=== PATIENT | female | born 1935 | race Caucasian/White ===

== ENCOUNTER 2017-07-21 14:17 | Emergency (ER) | payer MEDICARE, BC ==
--- NOTE | 2017-07-21 14:52 | RAD ---
2 VIEWS CHEST: Date: 07/21/17 COMPARISON: 07/25/13. FINDINGS: Two views of the chest show normal sized cardiomediastinal silhouette with atherosclerotic calcificat ions in the aorta. There is no evidence of consolidation, mass, or pleural effusion. Degenerative joselyn nges are seen in the spine. IMPRESSION: No evidence of acute cardiopulmonary disease. POS: [id number]
== END 2017-07-21 15:01 | disposition home or self-care (01) ==
LOC: SCSER 14:17
DX: J11.1 Influenza due to unidentified influenza virus with other respiratory manifestations (principal); J45.909 Unspecified asthma, uncomplicated
CPT/HCPCS: 71046

== ENCOUNTER 2018-01-26 16:47 | Emergency (ER) | payer MEDICARE, BC | END 2018-01-26 18:08 | disposition home or self-care (01) | LOC: SCSER 16:47 | DX: L29.9 Pruritus, unspecified (principal) | CPT/HCPCS: 99282 ==

== ENCOUNTER 2022-04-15 04:10 | Emergency (ER) | payer OTHER ==
[2022-04-15] MEDS ORDERED: Proparacaine 0.5% Opth 15 ML BOT ONE (04:33)
[2022-04-15] MEDS ORDERED: Fluorescein Opthalmic Strip ONE (04:33)
== END 2022-04-15 05:03 | disposition home or self-care (01) ==
LOC: ERS 04:10
DX: S05.01XA Injury of conjunctiva and corneal abrasion without foreign body, right eye, initial encounter (principal); X58.XXXA Exposure to other specified factors, initial encounter
CPT/HCPCS: 99283

== ENCOUNTER 2023-02-15 12:51 | Outpatient (CLI) | payer OTHER | END 2023-02-15 12:52 | disposition home or self-care (01) | LOC: MRI 12:51 | PROVIDERS: ATTEND Family Medicine | DX: F02.B11 Dementia in other diseases classified elsewhere, moderate, with agitation (principal); I77.9 Disorder of arteries and arterioles, unspecified | CPT/HCPCS: 70551 ==

== ENCOUNTER 2023-02-23 14:49 | Emergency (ER) | payer OTHER ==
[2023-02-23] MEDS ORDERED: Fluorescein Opthalmic Strip ONE (15:00)
[2023-02-23] MEDS ORDERED: Proparacaine 0.5% Opth 15 ML BOT ONE (15:00)
== END 2023-02-23 15:24 | disposition home or self-care (01) ==
LOC: ERS 14:49
DX: Z77.098 Contact with and (suspected) exposure to other hazardous, chiefly nonmedicinal, chemicals (principal)
CPT/HCPCS: 99283

== ENCOUNTER 2023-02-25 19:34 | Emergency (ER) | payer OTHER ==
[2023-02-25] MEDS ORDERED: Boostrix 0.5 ML (Tdap) VIAL (>/=7 yrs of age) ONE (20:46)
== END 2023-02-25 21:14 | disposition home or self-care (01) ==
LOC: ERS 19:34
DX: S51.812A Laceration without foreign body of left forearm, initial encounter (principal); W26.8XXA Contact with other sharp object(s), not elsewhere classified, initial encounter
CPT/HCPCS: 90471; 90715; 99282

== ENCOUNTER 2023-03-01 09:19 | Inpatient (IN) | payer OTHER ==
[2023-03-01] MEDS ORDERED: Iopamidol-370 76% 500 ML MDV (1 ML CHARGE) ONE (09:52)
[2023-03-01 10:07] LABS: #Eosinphils 0.1 thou/uL (0.0-0.7); #Monocytes 0.4 thou/uL (0.11-0.59); #Neutrophils 3.2 thou/uL (1.40-6.50); %Basophils 0.7 % (0.0-1.0); %Eosinophils 1.8 % (0.0-10.0); %Lymphocytes 16.8 % (21.0-51.0); %Monocytes 9.2 % (0.0-10.0); %Neutrophils 71.1 % (42.0-75.0); Hematocrit 35.3 % (36.0-47.0); Hemoglobin 11.4 g/dL (12.0-16.0); Mean Corpuscular HGB CONC 32.3 g/dL (32.0-36.0); Mean Corpuscular Hemoglobin 29.7 pg (27.0-31.0); Mean Corpuscular Volume 91.9 fl (78.0-98.0); Mean Platelet Volume 10.7 fL (7.4-10.4); Platelet Count 216 10x3/uL (130-400); RBC Distribution Width 13.3 % (11.5-14.5); Red Blood Cell (RBC) Count 3.84 mill/uL (4.20-5.40); White Blood Cell (WBC) Count 4.5 10x3/uL (4.8-10.8)
[2023-03-01 10:32] LABS: Troponin I 0.024 ng/mL (< 0.028)
[2023-03-01 10:36] LABS: ALT (SGPT) 8 U/L (8-55); AST (SGOT) 10 U/L (5-34); Albumin 3.9 g/dL (3.4-4.8); Alkaline Phosphatase 54 U/L (40-110); Anion Gap 11 mmol/L (10-20); BUN (Urea Nitrogen) 11 mg/dL (9.8-20.1); Bilirubin, Total 0.7 mg/dL (0.2-1.2); Calc. Creatinine Clearance 0 mL/min (70-130); Calcium 8.8 mg/dL (7.8-10.44); Carbon Dioxide 25 mmol/L (23-31); Chloride 108 mmol/L (98-107); Estimated GFR 42; Globulin 2.6 g/dL (2.4-3.5); Glucose 99 mg/dL (83-110); Lipase 12 U/L (8-78); Magnesium 2.2 mg/dL (1.6-2.6); Potassium 3.5 mmol/L (3.5-5.1); Protein, Total 6.5 g/dL (5.8-8.1); Sodium 140 mmol/L (136-145)
[2023-03-01 11:16] LABS: Bacteria/HPF None Seen HPF (None Seen); Bilirubin Negative (Negative); Blood, Urine Negative (Negative); CAUTI Indications for Culture Dysuria,urgency,freq; Clarity Clear (Clear); Glucose, Urine (Dipstick) Normal (Negative); Ketone, Urine Negative (Negative); Leukocyte 75 Leu/uL (Negative); Nitrite Negative (Negative); Protein, Urine (Dipstick) Negative (Neg-Trace); RBC/HPF 0-3 HPF (0-3); Specific Gravity, Urine 1.006 (1.002-1.036); Squamous Epithelial 0-3 HPF (0-3); Urobilinogen Normal mg/dL (Less than 2); WBC/HPF 0-3 HPF (0-3)
[2023-03-01 11:17] LABS: Urine Culture Reflex No No
[2023-03-01] MEDS ORDERED: diphenhydrAMINE 50 MG/ML VIAL ONE (11:38)
[2023-03-01] MEDS ORDERED: Famotidine/PF 20 mg/2ml Vial ONE (11:40)
[2023-03-01] MEDS ORDERED: methylPREDNISolone Sod Succ 40 MG VIAL ONE (11:40)
[2023-03-01] MEDS ORDERED: Ondansetron ODT 4 MG TAB PO PRN (17:27)
[2023-03-01] MEDS ORDERED: Acetaminophen 325 MG TAB PO PRN (17:27)
[2023-03-01] MEDS ORDERED: Acetaminophen 650 MG Suppository PR PRN (17:27)
[2023-03-01] MEDS ORDERED: Ondansetron PF 4 MG/2 ML Vial IVP PRN (17:27)
[2023-03-01] MEDS ORDERED: Senokot S 8.6-50 MG TAB PO PRN (17:27)
[2023-03-01] MEDS ORDERED: traZODone HCl 50 MG TAB PO PRN (17:30)
[2023-03-01] MEDS ORDERED: Haloperidol Lactate 5 MG/ML VIAL ONE (18:39)
[2023-03-01] MEDS ORDERED: LORazepam 2 MG/ML SYR.(CARPUJECT) ONE (18:39)
[2023-03-01 19:22] VITALS: BMI 28.3
[2023-03-01 22:27] LABS: Anion Gap 18 mmol/L (10-20); BUN (Urea Nitrogen) 10 mg/dL (9.8-20.1); Calc. Creatinine Clearance 45 mL/min (70-130); Calcium 8.6 mg/dL (7.8-10.44); Carbon Dioxide 16 mmol/L (23-31); Chloride 110 mmol/L (98-107); Estimated GFR 56; Glucose 116 mg/dL (83-110); Potassium 3.9 mmol/L (3.5-5.1); Sodium 140 mmol/L (136-145)
[2023-03-02 05:48] LABS: #Eosinphils 0.1 thou/uL (0.0-0.7); #Monocytes 0.8 thou/uL (0.11-0.59); #Neutrophils 3.6 thou/uL (1.40-6.50); %Basophils 0.5 % (0.0-1.0); %Eosinophils 1.4 % (0.0-10.0); %Lymphocytes 19.9 % (21.0-51.0); %Monocytes 13.5 % (0.0-10.0); %Neutrophils 64.3 % (42.0-75.0); Hematocrit 33.5 % (36.0-47.0); Hemoglobin 10.4 g/dL (12.0-16.0); Mean Corpuscular Hemoglobin 29.5 pg (27.0-31.0); Mean Platelet Volume 10.3 fL (7.4-10.4); Platelet Count 190 10x3/uL (130-400); RBC Distribution Width 13.3 % (11.5-14.5); Red Blood Cell (RBC) Count 3.52 mill/uL (4.20-5.40); White Blood Cell (WBC) Count 5.5 10x3/uL (4.8-10.8)
[2023-03-02 05:54] LABS: Mean Corpuscular Volume 95.2 fl (78.0-98.0)
[2023-03-02 06:10] LABS: Anion Gap 11 mmol/L (10-20); BUN (Urea Nitrogen) 10 mg/dL (9.8-20.1); Calc. Creatinine Clearance 44 mL/min (70-130); Calcium 8.6 mg/dL (7.8-10.44); Carbon Dioxide 23 mmol/L (23-31); Chloride 110 mmol/L (98-107); Estimated GFR 54; Glucose 88 mg/dL (83-110); Potassium 3.4 mmol/L (3.5-5.1); Sodium 141 mmol/L (136-145)
[2023-03-02] MEDS: ALPRAZolam 0.25 MG TAB PO PRN ×2 (15:59→20:42)
[2023-03-02] MEDS ORDERED: Potassium Chloride 20 MEQ TAB PO SCH (16:45)
[2023-03-02] MEDS: Venlafaxine HCl 37.5 MG TAB PO SCH (20:42)
[2023-03-03] MEDS: Venlafaxine HCl 37.5 MG TAB PO SCH (07:52)
[2023-03-03 14:36] VITALS: BP 153/83; TEMP 98.1
== END 2023-03-03 16:21 | disposition home or self-care (01) | DRG 694 ==
LOC: ERS 09:19 → ERHOLD 15:58 → T4-B 18:58 → OBSVTOIN 03-02 14:28
PROVIDERS: ADMIT Internal Medicine; ATTEND Family Medicine
PROC: 0T9B70Z Drainage of Bladder with Drainage Device, Via Natural or Artificial Opening (ICD-10-PCS; principal; 2023-03-02)
DX: N13.30 Unspecified hydronephrosis (principal); F03.918 Unspecified dementia, unspecified severity, with other behavioral disturbance; J45.909 Unspecified asthma, uncomplicated; N17.9 Acute kidney failure, unspecified; E03.9 Hypothyroidism, unspecified; F41.9 Anxiety disorder, unspecified; Z96.653 Presence of artificial knee joint, bilateral; R33.9 Retention of urine, unspecified; E87.6 Hypokalemia; N18.9 Chronic kidney disease, unspecified; Z91.012 Allergy to eggs; Z91.013 Allergy to seafood; Z91.041 Radiographic dye allergy status; Z88.8 Allergy status to other drugs, medicaments and biological substances; Z88.2 Allergy status to sulfonamides; Z79.51 Long term (current) use of inhaled steroids; Z79.899 Other long term (current) drug therapy; Z90.710 Acquired absence of both cervix and uterus
CPT/HCPCS: 36415; 71045; 71275; 74177; 80048; 80053; 81001; 83690; 83735; 83880; 84484; 85025; 85379; 93005; J1200; J1630; J1650; J2060; J2920; Q9967; S0028

== ENCOUNTER 2023-03-03 19:39 | Emergency (ER) | payer OTHER ==
[2023-03-03] MEDS ORDERED: QUEtiapine 25 MG TAB PO SCH (22:15)
== END 2023-03-04 01:37 | disposition home or self-care (01) ==
LOC: ERS 19:39
DX: F03.90 Unspecified dementia, unspecified severity, without behavioral disturbance, psychotic disturbance, mood disturbance, and anxiety (principal)

== ENCOUNTER 2023-03-05 15:22 | Emergency (ER) | payer OTHER | END 2023-03-05 16:13 | disposition home or self-care (01) | LOC: ERS 15:22 | DX: K64.5 Perianal venous thrombosis (principal) | CPT/HCPCS: 99284 ==

== ENCOUNTER 2023-03-05 20:43 | Emergency (ER) | payer OTHER | END 2023-03-05 21:11 | disposition home or self-care (01) | LOC: ERS 20:43 | DX: T83.091A Other mechanical complication of indwelling urethral catheter, initial encounter (principal) | CPT/HCPCS: 99283 ==

== ENCOUNTER 2023-03-06 03:42 | Emergency (ER) | payer OTHER | END 2023-03-06 04:17 | disposition home or self-care (01) | LOC: ERS 03:42 | DX: S51.811A Laceration without foreign body of right forearm, initial encounter (principal); T83.028A Displacement of other urinary catheter, initial encounter | CPT/HCPCS: 99283 ==

== ENCOUNTER 2023-03-06 15:48 | Emergency (ER) | payer OTHER ==
[2023-03-06 18:46] LABS: Bilirubin Negative (Negative); Blood, Urine 3+ (Negative); CAUTI Indications for Culture Alt mental st,lethar; Clarity Clear (Clear); Glucose, Urine (Dipstick) Normal (Negative); Ketone, Urine Negative (Negative); Leukocyte 250 Leu/uL (Negative); Nitrite Negative (Negative); Protein, Urine (Dipstick) 30 mg/dL (Neg-Trace); RBC/HPF Greater than 50 HPF (0-3); Specific Gravity, Urine 1.004 (1.002-1.036); Squamous Epithelial 0-3 HPF (0-3); Urobilinogen Normal mg/dL (Less than 2); pH, Urine 6.5 (5.0-9.0)
[2023-03-06 18:47] LABS: Bacteria/HPF 1+ HPF (None Seen)
[2023-03-06 18:50] LABS: Urine Culture Reflex No No
== END 2023-03-06 18:57 | disposition home or self-care (01) ==
LOC: ERS 15:48
DX: T83.098A Other mechanical complication of other urinary catheter, initial encounter (principal)
CPT/HCPCS: 81001; 99283

== ENCOUNTER 2023-03-07 22:51 | Inpatient (IN) | payer OTHER ==
[2023-03-08] MEDS ORDERED: Ziprasidone 20 MG VIAL ONE (02:07)
[2023-03-08] MEDS ORDERED: Sterile Water 10 ML ONE (02:09)
[2023-03-08 02:22] LABS: #Eosinphils 0.1 thou/uL (0.0-0.7); #Monocytes 1.2 thou/uL (0.11-0.59); #Neutrophils 6.2 thou/uL (1.40-6.50); %Basophils 0.3 % (0.0-1.0); %Eosinophils 0.9 % (0.0-10.0); %Lymphocytes 13.9 % (21.0-51.0); %Monocytes 13.3 % (0.0-10.0); %Neutrophils 71.3 % (42.0-75.0); Hematocrit 33.5 % (36.0-47.0); Mean Corpuscular HGB CONC 32.8 g/dL (32.0-36.0); Mean Corpuscular Hemoglobin 29.8 pg (27.0-31.0); Mean Corpuscular Volume 90.8 fl (78.0-98.0); Mean Platelet Volume 10.3 fL (7.4-10.4); Platelet Count 209 10x3/uL (130-400); RBC Distribution Width 13.3 % (11.5-14.5); Red Blood Cell (RBC) Count 3.69 mill/uL (4.20-5.40); White Blood Cell (WBC) Count 8.6 10x3/uL (4.8-10.8)
[2023-03-08 02:48] LABS: Troponin I 0.019 ng/mL (< 0.028)
[2023-03-08 02:51] LABS: Bacteria/HPF 3+ HPF (None Seen); Bilirubin Negative (Negative); Blood, Urine 3+ (Negative); CAUTI Indications for Culture Alt mental st,lethar; Clarity Extra Turbid (Clear); Glucose, Urine (Dipstick) Normal (Negative); Ketone, Urine Negative (Negative); Leukocyte 500 Leu/uL (Negative); Nitrite 1+ (Negative); Protein, Urine (Dipstick) 100 mg/dL (Neg-Trace); RBC/HPF 21-50 HPF (0-3); Specific Gravity, Urine 1.005 (1.002-1.036); Squamous Epithelial None Seen HPF (0-3); Transitional Epithelial 0-3 HPF (None Seen); Urobilinogen Normal mg/dL (Less than 2); WBC/HPF Greater than 50 HPF (0-3); pH, Urine 6.5 (5.0-9.0)
[2023-03-08 02:53] LABS: ALT (SGPT) 9 U/L (8-55); AST (SGOT) 12 U/L (5-34); Albumin 3.9 g/dL (3.4-4.8); Alkaline Phosphatase 56 U/L (40-110); Anion Gap 14 mmol/L (10-20); BUN (Urea Nitrogen) 20 mg/dL (9.8-20.1); Bilirubin, Total 1.4 mg/dL (0.2-1.2); Calc. Creatinine Clearance 0 mL/min (70-130); Calcium 9.1 mg/dL (7.8-10.44); Carbon Dioxide 21 mmol/L (23-31); Chloride 103 mmol/L (98-107); Estimated GFR 30; Globulin 2.6 g/dL (2.4-3.5); Glucose 99 mg/dL (83-110); Protein, Total 6.5 g/dL (5.8-8.1); Sodium 134 mmol/L (136-145)
[2023-03-08 02:55] LABS: Urine Culture Reflex Yes Yes
[2023-03-08] MEDS ORDERED: LORazepam 2 MG/ML SYR.(CARPUJECT) ONE (03:52)
[2023-03-08] MEDS ORDERED: Doxycycline 100 MG in Sodium Chloride 0.9% 100 ML IVPB SCH (04:30)
[2023-03-08 08:11] LABS: Phosphorus 3.2 mg/dL (2.3-4.7)
[2023-03-08 08:25] LABS: INR-International Normal Ratio 1.3; PTT 31.3 sec (22.9-36.1); Prothrombin Time 16.8 sec (12.0-14.7)
[2023-03-08] MEDS ORDERED: LevoFLOXacin 750 mg/D5W 750 MG in Premix Bag 1 BAG IVPB SCH (09:00)
[2023-03-08] MEDS: Lactated Ringer's 1,000 ML IV SCH ×2 (09:23→23:39)
[2023-03-08 19:55] VITALS: BMI 24.9
[2023-03-08] MEDS: traZODone HCl 50 MG TAB PO PRN (20:22)
[2023-03-08] MEDS: QUEtiapine 25 MG TAB PO SCH (20:22)
[2023-03-09] MEDS ORDERED: Albuterol 200 PUFF (6.7GM INHALER) INH PRN (08:34)
[2023-03-09] MEDS: Lactated Ringer's 1,000 ML IV SCH (08:39)
[2023-03-09] MEDS: Venlafaxine XR 37.5 MG CAP PO SCH (08:39)
[2023-03-09 09:31] LABS: #Eosinphils 0.2 thou/uL (0.0-0.7); #Monocytes 0.6 thou/uL (0.11-0.59); #Neutrophils 2.9 thou/uL (1.40-6.50); %Basophils 0.4 % (0.0-1.0); %Eosinophils 3.6 % (0.0-10.0); %Lymphocytes 25.3 % (21.0-51.0); %Monocytes 11.1 % (0.0-10.0); %Neutrophils 59.4 % (42.0-75.0); Hematocrit 30.7 % (36.0-47.0); Hemoglobin 9.9 g/dL (12.0-16.0); Mean Corpuscular HGB CONC 32.2 g/dL (32.0-36.0); Mean Corpuscular Hemoglobin 29.8 pg (27.0-31.0); Mean Corpuscular Volume 92.5 fl (78.0-98.0); Mean Platelet Volume 10.5 fL (7.4-10.4); Platelet Count 157 10x3/uL (130-400); RBC Distribution Width 13.4 % (11.5-14.5); Red Blood Cell (RBC) Count 3.32 mill/uL (4.20-5.40); White Blood Cell (WBC) Count 4.9 10x3/uL (4.8-10.8)
[2023-03-09 09:51] LABS: Anion Gap 11 mmol/L (10-20); BUN (Urea Nitrogen) 13 mg/dL (9.8-20.1); Calc. Creatinine Clearance 29 mL/min (70-130); Calcium 8.7 mg/dL (7.8-10.44); Carbon Dioxide 23 mmol/L (23-31); Chloride 110 mmol/L (98-107); Estimated GFR 36; Glucose 82 mg/dL (83-110); Sodium 140 mmol/L (136-145)
[2023-03-09] MEDS: ALPRAZolam 0.25 MG TAB PO PRN (19:07)
[2023-03-09] MEDS: traZODone HCl 50 MG TAB PO PRN (19:41)
[2023-03-09] MEDS: QUEtiapine 25 MG TAB PO SCH (19:41)
[2023-03-10 06:58] LABS: #Eosinphils 0.2 thou/uL (0.0-0.7); #Monocytes 0.5 thou/uL (0.11-0.59); #Neutrophils 1.6 thou/uL (1.40-6.50); %Basophils 0.8 % (0.0-1.0); %Eosinophils 5.6 % (0.0-10.0); %Monocytes 13.2 % (0.0-10.0); %Neutrophils 44.1 % (42.0-75.0); Hematocrit 30.4 % (36.0-47.0); Hemoglobin 9.4 g/dL (12.0-16.0); Mean Corpuscular HGB CONC 30.9 g/dL (32.0-36.0); Mean Corpuscular Hemoglobin 29.5 pg (27.0-31.0); Mean Platelet Volume 10.5 fL (7.4-10.4); Platelet Count 180 10x3/uL (130-400); RBC Distribution Width 13.3 % (11.5-14.5); Red Blood Cell (RBC) Count 3.19 mill/uL (4.20-5.40); White Blood Cell (WBC) Count 3.7 10x3/uL (4.8-10.8)
[2023-03-10 07:03] LABS: Mean Corpuscular Volume 95.3 fl (78.0-98.0)
[2023-03-10 07:27] LABS: Anion Gap 10 mmol/L (10-20); BUN (Urea Nitrogen) 13 mg/dL (9.8-20.1); Calc. Creatinine Clearance 34 mL/min (70-130); Calcium 8.5 mg/dL (7.8-10.44); Carbon Dioxide 23 mmol/L (23-31); Chloride 111 mmol/L (98-107); Estimated GFR 43; Glucose 76 mg/dL (83-110); Potassium 3.9 mmol/L (3.5-5.1); Sodium 140 mmol/L (136-145)
[2023-03-10] MEDS: Venlafaxine XR 37.5 MG CAP PO SCH (08:34)
[2023-03-10] MEDS ORDERED: LevoFLOXacin 750 mg/D5W 750 MG in Premix Bag 1 BAG IVPB SCH (09:00)
[2023-03-10] MEDS: ALPRAZolam 0.25 MG TAB PO PRN (09:50)
[2023-03-10] MEDS: Nitrofurantoin Monohyd/M-Cryst 100 MG CAP PO SCH (20:07)
[2023-03-10] MEDS: QUEtiapine 25 MG TAB PO SCH (20:07)
[2023-03-10] MEDS: traZODone HCl 50 MG TAB PO PRN (20:07)
[2023-03-11] MEDS: Lactated Ringer's 1,000 ML IV SCH (00:12)
[2023-03-11] MEDS: Venlafaxine XR 37.5 MG CAP PO SCH (08:09)
[2023-03-11] MEDS: Nitrofurantoin Monohyd/M-Cryst 100 MG CAP PO SCH (08:09)
[2023-03-11 10:00] LABS: #Eosinphils 0.1 thou/uL (0.0-0.7); #Monocytes 0.4 thou/uL (0.11-0.59); #Neutrophils 2.4 thou/uL (1.40-6.50); %Basophils 1.1 % (0.0-1.0); %Eosinophils 3.7 % (0.0-10.0); %Lymphocytes 22.6 % (21.0-51.0); %Monocytes 9.3 % (0.0-10.0); Hematocrit 34.6 % (36.0-47.0); Hemoglobin 10.9 g/dL (12.0-16.0); Mean Corpuscular HGB CONC 31.5 g/dL (32.0-36.0); Mean Corpuscular Hemoglobin 29.5 pg (27.0-31.0); Mean Corpuscular Volume 93.8 fl (78.0-98.0); Mean Platelet Volume 10.1 fL (7.4-10.4); Platelet Count 206 10x3/uL (130-400); Red Blood Cell (RBC) Count 3.69 mill/uL (4.20-5.40); White Blood Cell (WBC) Count 3.8 10x3/uL (4.8-10.8)
[2023-03-11 10:23] LABS: Anion Gap 12 mmol/L (10-20); BUN (Urea Nitrogen) 14 mg/dL (9.8-20.1); Calc. Creatinine Clearance 31 mL/min (70-130); Carbon Dioxide 24 mmol/L (23-31); Estimated GFR 39; Glucose 94 mg/dL (83-110); Potassium 4.2 mmol/L (3.5-5.1); Sodium 138 mmol/L (136-145)
[2023-03-11 10:26] LABS: Chloride 106 mmol/L (98-107)
[2023-03-11] MEDS: ALPRAZolam 0.25 MG TAB PO PRN (11:13)
[2023-03-11] MEDS: QUEtiapine 25 MG TAB PO SCH ×3 (20:35→23:22)
[2023-03-12] MEDS ORDERED: Lorazepam 2 MG/ML VIAL SLOW IVP PRN (00:48)
[2023-03-12] MEDS ORDERED: ALPRAZolam 0.25 MG TAB PO PRN (00:54)
[2023-03-12 07:00] LABS: #Eosinphils 0.2 thou/uL (0.0-0.7); #Monocytes 0.7 thou/uL (0.11-0.59); #Neutrophils 2.6 thou/uL (1.40-6.50); %Basophils 0.8 % (0.0-1.0); %Eosinophils 3.3 % (0.0-10.0); %Lymphocytes 29.1 % (21.0-51.0); %Monocytes 13.8 % (0.0-10.0); %Neutrophils 52.8 % (42.0-75.0); Hematocrit 32.9 % (36.0-47.0); Hemoglobin 10.3 g/dL (12.0-16.0); Mean Corpuscular HGB CONC 31.3 g/dL (32.0-36.0); Mean Corpuscular Hemoglobin 29.1 pg (27.0-31.0); Mean Corpuscular Volume 92.9 fl (78.0-98.0); Platelet Count 213 10x3/uL (130-400); Red Blood Cell (RBC) Count 3.54 mill/uL (4.20-5.40); White Blood Cell (WBC) Count 4.9 10x3/uL (4.8-10.8)
[2023-03-12 07:20] LABS: Anion Gap 12 mmol/L (10-20); BUN (Urea Nitrogen) 15 mg/dL (9.8-20.1); Calc. Creatinine Clearance 34 mL/min (70-130); Calcium 8.8 mg/dL (7.8-10.44); Carbon Dioxide 24 mmol/L (23-31); Chloride 107 mmol/L (98-107); Estimated GFR 44; Glucose 98 mg/dL (83-110); Sodium 139 mmol/L (136-145)
[2023-03-12] MEDS: LevoFLOXacin 250 MG TAB PO SCH (08:02)
[2023-03-12] MEDS: Venlafaxine XR 37.5 MG CAP PO SCH (08:02)
[2023-03-12] MEDS ORDERED: Lorazepam 2 MG/ML VIAL SLOW IVP SCH (09:30)
[2023-03-12] MEDS: ALPRAZolam 0.25 MG TAB PO PRN (15:55)
[2023-03-12] MEDS: QUEtiapine 25 MG TAB PO SCH (20:25)
[2023-03-13] MEDS: LevoFLOXacin 250 MG TAB PO SCH (05:28)
[2023-03-13 06:32] LABS: #Basophils 0.1 thou/uL (0.0-0.2); #Eosinphils 0.2 thou/uL (0.0-0.7); #Monocytes 0.6 thou/uL (0.11-0.59); #Neutrophils 2.3 thou/uL (1.40-6.50); %Lymphocytes 37.2 % (21.0-51.0); %Monocytes 11.6 % (0.0-10.0); Hematocrit 31.6 % (36.0-47.0); Mean Corpuscular HGB CONC 31.6 g/dL (32.0-36.0); Mean Corpuscular Hemoglobin 29.9 pg (27.0-31.0); Mean Corpuscular Volume 94.6 fl (78.0-98.0); Mean Platelet Volume 10.1 fL (7.4-10.4); Platelet Count 212 10x3/uL (130-400); RBC Distribution Width 13.2 % (11.5-14.5); Red Blood Cell (RBC) Count 3.34 mill/uL (4.20-5.40); White Blood Cell (WBC) Count 4.9 10x3/uL (4.8-10.8)
[2023-03-13 06:54] LABS: Anion Gap 10 mmol/L (10-20); BUN (Urea Nitrogen) 15 mg/dL (9.8-20.1); Calc. Creatinine Clearance 32 mL/min (70-130); Calcium 8.8 mg/dL (7.8-10.44); Carbon Dioxide 25 mmol/L (23-31); Chloride 107 mmol/L (98-107); Estimated GFR 40; Glucose 82 mg/dL (83-110); Potassium 4.2 mmol/L (3.5-5.1); Sodium 138 mmol/L (136-145)
[2023-03-13] MEDS: Venlafaxine XR 37.5 MG CAP PO SCH (12:00)
[2023-03-13] MEDS: QUEtiapine 25 MG TAB PO SCH (17:09)
[2023-03-13] MEDS: ALPRAZolam 0.25 MG TAB PO PRN (17:09)
[2023-03-14] MEDS: LevoFLOXacin 250 MG TAB PO SCH (05:24)
[2023-03-14] MEDS ORDERED: Haloperidol Lactate 5 MG/ML VIAL IM SCH (08:45)
[2023-03-14] MEDS: Venlafaxine XR 37.5 MG CAP PO SCH (09:18)
[2023-03-14] MEDS ORDERED: OLANZapine 10 MG VIAL IM SCH (12:00)
[2023-03-14] MEDS ORDERED: Sterile Water 10 ML ONE (12:26)
[2023-03-14 13:25] LABS: SARS-CoV-2 NAA Rapid Test Not Detected (NotDetected)
[2023-03-14 15:04] LABS: #Monocytes 0.9 thou/uL (0.11-0.59); #Neutrophils 7.4 thou/uL (1.40-6.50); %Basophils 0.3 % (0.0-1.0); %Eosinophils 0.2 % (0.0-10.0); %Lymphocytes 7.1 % (21.0-51.0); %Monocytes 10.3 % (0.0-10.0); %Neutrophils 81.7 % (42.0-75.0); Hematocrit 34.8 % (36.0-47.0); Hemoglobin 11.3 g/dL (12.0-16.0); Mean Corpuscular HGB CONC 32.5 g/dL (32.0-36.0); Mean Corpuscular Hemoglobin 29.7 pg (27.0-31.0); Mean Corpuscular Volume 91.3 fl (78.0-98.0); Mean Platelet Volume 10.1 fL (7.4-10.4); Platelet Count 250 10x3/uL (130-400); RBC Distribution Width 13.2 % (11.5-14.5); Red Blood Cell (RBC) Count 3.81 mill/uL (4.20-5.40); White Blood Cell (WBC) Count 9.1 10x3/uL (4.8-10.8)
[2023-03-14 16:44] LABS: Anion Gap 11 mmol/L (10-20); BUN (Urea Nitrogen) 17 mg/dL (9.8-20.1); Calc. Creatinine Clearance 35 mL/min (70-130); Calcium 9.2 mg/dL (7.8-10.44); Carbon Dioxide 23 mmol/L (23-31); Chloride 107 mmol/L (98-107); Estimated GFR 44; Glucose 114 mg/dL (83-110); Potassium 3.9 mmol/L (3.5-5.1); Sodium 137 mmol/L (136-145)
[2023-03-14] MEDS: QUEtiapine 25 MG TAB PO SCH (16:54)
[2023-03-15] MEDS: LevoFLOXacin 250 MG TAB PO SCH (06:20)
[2023-03-15] MEDS ORDERED: OLANZapine 10 MG VIAL IM SCH (09:00)
[2023-03-15] MEDS: Venlafaxine XR 37.5 MG CAP PO SCH (09:35)
[2023-03-15] MEDS: OLANZapine 10 MG VIAL IM SCH (09:35)
[2023-03-15 12:26] LABS: #Eosinphils 0.2 thou/uL (0.0-0.7); #Monocytes 0.8 thou/uL (0.11-0.59); #Neutrophils 4.5 thou/uL (1.40-6.50); %Basophils 0.6 % (0.0-1.0); %Eosinophils 2.5 % (0.0-10.0); %Lymphocytes 16.8 % (21.0-51.0); %Monocytes 12.6 % (0.0-10.0); %Neutrophils 67.1 % (42.0-75.0); Hematocrit 36.4 % (36.0-47.0); Hemoglobin 11.6 g/dL (12.0-16.0); Mean Corpuscular HGB CONC 31.9 g/dL (32.0-36.0); Mean Corpuscular Hemoglobin 29.7 pg (27.0-31.0); Mean Corpuscular Volume 93.3 fl (78.0-98.0); Platelet Count 266 10x3/uL (130-400); RBC Distribution Width 13.5 % (11.5-14.5); White Blood Cell (WBC) Count 6.7 10x3/uL (4.8-10.8)
[2023-03-15 13:02] LABS: Anion Gap 10 mmol/L (10-20); BUN (Urea Nitrogen) 17 mg/dL (9.8-20.1); Calc. Creatinine Clearance 33 mL/min (70-130); Calcium 9.2 mg/dL (7.8-10.44); Carbon Dioxide 25 mmol/L (23-31); Chloride 105 mmol/L (98-107); Estimated GFR 43; Glucose 96 mg/dL (83-110); Magnesium 2.4 mg/dL (1.6-2.6); Potassium 4.3 mmol/L (3.5-5.1); Sodium 136 mmol/L (136-145)
[2023-03-15] MEDS: QUEtiapine 25 MG TAB PO SCH (16:57)
[2023-03-16 05:19] LABS: #Basophils 0.1 thou/uL (0.0-0.2); #Eosinphils 0.2 thou/uL (0.0-0.7); #Monocytes 1.1 thou/uL (0.11-0.59); %Basophils 0.6 % (0.0-1.0); %Eosinophils 2.2 % (0.0-10.0); %Lymphocytes 21.4 % (21.0-51.0); %Monocytes 13.3 % (0.0-10.0); %Neutrophils 61.9 % (42.0-75.0); Hemoglobin 10.8 g/dL (12.0-16.0); Mean Corpuscular HGB CONC 31.8 g/dL (32.0-36.0); Mean Corpuscular Hemoglobin 29.8 pg (27.0-31.0); Mean Corpuscular Volume 93.7 fl (78.0-98.0); Mean Platelet Volume 9.7 fL (7.4-10.4); Platelet Count 249 10x3/uL (130-400); RBC Distribution Width 13.5 % (11.5-14.5); Red Blood Cell (RBC) Count 3.63 mill/uL (4.20-5.40)
[2023-03-16 05:52] LABS: Anion Gap 10 mmol/L (10-20); BUN (Urea Nitrogen) 24 mg/dL (9.8-20.1); Calc. Creatinine Clearance 26 mL/min (70-130); Carbon Dioxide 25 mmol/L (23-31); Chloride 106 mmol/L (98-107); Estimated GFR 31; Glucose 91 mg/dL (83-110); Potassium 4.5 mmol/L (3.5-5.1); Sodium 136 mmol/L (136-145)
[2023-03-16] MEDS: LevoFLOXacin 250 MG TAB PO SCH (06:10)
[2023-03-16] MEDS: OLANZapine 10 MG VIAL IM SCH (08:40)
[2023-03-16] MEDS: Venlafaxine XR 37.5 MG CAP PO SCH (08:40)
[2023-03-16] MEDS ORDERED: OLANZapine 10 MG VIAL IM SCH (11:30)
[2023-03-16] MEDS ORDERED: Sterile Water 10 ML VIAL FS PRN ×2 (11:30→11:45)
[2023-03-16] MEDS: QUEtiapine 25 MG TAB PO SCH (17:31)
[2023-03-17] MEDS: traZODone HCl 50 MG TAB PO PRN ×2 (01:55→19:59)
[2023-03-17] MEDS: LevoFLOXacin 250 MG TAB PO SCH (06:42)
[2023-03-17 06:54] LABS: #Eosinphils 0.1 thou/uL (0.0-0.7); #Monocytes 1.1 thou/uL (0.11-0.59); #Neutrophils 4.6 thou/uL (1.40-6.50); %Basophils 0.4 % (0.0-1.0); %Eosinophils 1.7 % (0.0-10.0); %Lymphocytes 17.8 % (21.0-51.0); %Neutrophils 64.7 % (42.0-75.0); Hematocrit 34.8 % (36.0-47.0); Hemoglobin 11.2 g/dL (12.0-16.0); Mean Corpuscular HGB CONC 32.2 g/dL (32.0-36.0); Mean Corpuscular Hemoglobin 29.6 pg (27.0-31.0); Mean Corpuscular Volume 92.1 fl (78.0-98.0); Mean Platelet Volume 10.4 fL (7.4-10.4); Platelet Count 258 10x3/uL (130-400); RBC Distribution Width 13.5 % (11.5-14.5); Red Blood Cell (RBC) Count 3.78 mill/uL (4.20-5.40); White Blood Cell (WBC) Count 7.1 10x3/uL (4.8-10.8)
[2023-03-17 07:24] LABS: Anion Gap 11 mmol/L (10-20); BUN (Urea Nitrogen) 26 mg/dL (9.8-20.1); Calc. Creatinine Clearance 30 mL/min (70-130); Calcium 9.1 mg/dL (7.8-10.44); Carbon Dioxide 25 mmol/L (23-31); Chloride 103 mmol/L (98-107); Estimated GFR 37; Glucose 96 mg/dL (83-110); Potassium 4.3 mmol/L (3.5-5.1); Sodium 135 mmol/L (136-145)
[2023-03-17] MEDS: Venlafaxine XR 37.5 MG CAP PO SCH (10:08)
[2023-03-17] MEDS: OLANZapine 10 MG VIAL IM SCH (10:09)
[2023-03-17] MEDS: Sterile Water 10 ML VIAL FS SCH (10:11)
[2023-03-17] MEDS: QUEtiapine 25 MG TAB PO SCH (17:30)
[2023-03-18] MEDS: LevoFLOXacin 250 MG TAB PO SCH (05:16)
[2023-03-18] MEDS: Venlafaxine XR 37.5 MG CAP PO SCH (10:30)
[2023-03-18] MEDS: Sterile Water 10 ML VIAL FS SCH (10:34)
[2023-03-18] MEDS: OLANZapine 10 MG VIAL IM SCH (10:34)
[2023-03-18] MEDS: QUEtiapine 25 MG TAB PO SCH (15:50)
[2023-03-18] MEDS ORDERED: Haloperidol Lactate 5 MG/ML VIAL IM SCH (16:30)
[2023-03-19] MEDS: Venlafaxine XR 37.5 MG CAP PO SCH (09:30)
[2023-03-19] MEDS: OLANZapine 10 MG VIAL IM SCH (09:30)
[2023-03-19] MEDS: Sterile Water 10 ML VIAL FS SCH (09:31)
[2023-03-19] MEDS: QUEtiapine 25 MG TAB PO SCH (15:15)
[2023-03-19] MEDS ORDERED: ALPRAZolam 0.25 MG TAB PO SCH (17:15)
[2023-03-20] MEDS: Venlafaxine XR 37.5 MG CAP PO SCH (08:31)
[2023-03-20] MEDS: OLANZapine 10 MG VIAL IM SCH (08:31)
[2023-03-20] MEDS: Sterile Water 10 ML VIAL FS SCH (08:35)
[2023-03-20] MEDS: QUEtiapine 25 MG TAB PO SCH (15:40)
[2023-03-21] MEDS ORDERED: Bisacodyl 5 MG TAB PO SCH (07:15)
[2023-03-21] MEDS: Venlafaxine XR 37.5 MG CAP PO SCH (08:34)
[2023-03-21] MEDS: OLANZapine 10 MG VIAL IM SCH (08:34)
[2023-03-21] MEDS: Sterile Water 10 ML VIAL FS SCH (08:35)
[2023-03-21 10:34] LABS: Hematocrit 36.7 % (36.0-47.0); Hemoglobin 11.4 g/dL (12.0-16.0); Mean Corpuscular HGB CONC 31.1 g/dL (32.0-36.0); Mean Corpuscular Hemoglobin 29.2 pg (27.0-31.0); Mean Corpuscular Volume 93.9 fl (78.0-98.0); Mean Platelet Volume 10.1 fL (7.4-10.4); Platelet Count 323 10x3/uL (130-400); RBC Distribution Width 13.2 % (11.5-14.5); Red Blood Cell (RBC) Count 3.91 mill/uL (4.20-5.40); White Blood Cell (WBC) Count 5.5 10x3/uL (4.8-10.8)
[2023-03-21 11:02] LABS: Anion Gap 12 mmol/L (10-20); BUN (Urea Nitrogen) 29 mg/dL (9.8-20.1); Calc. Creatinine Clearance 30 mL/min (70-130); Calcium 9.2 mg/dL (7.8-10.44); Carbon Dioxide 25 mmol/L (23-31); Chloride 104 mmol/L (98-107); Estimated GFR 38; Glucose 78 mg/dL (83-110); Potassium 4.1 mmol/L (3.5-5.1); Sodium 137 mmol/L (136-145)
[2023-03-21 12:41] VITALS: BP 134/68; TEMP 97.7
== END 2023-03-21 13:05 | DRG 689 ==
LOC: ERS 22:51 → T4-B 03-08 05:53
PROVIDERS: ADMIT Family Medicine; ATTEND Internal Medicine
PROC: 0T2BX0Z Change Drainage Device in Bladder, External Approach (ICD-10-PCS; principal; 2023-03-08)
PROC: 4A10X4Z Monitoring of Central Nervous Electrical Activity, External Approach (ICD-10-PCS; 2023-03-17)
DX: N13.6 Pyonephrosis (principal); G93.41 Metabolic encephalopathy; F03.918 Unspecified dementia, unspecified severity, with other behavioral disturbance; N17.9 Acute kidney failure, unspecified; J45.909 Unspecified asthma, uncomplicated; Z96.653 Presence of artificial knee joint, bilateral; M19.90 Unspecified osteoarthritis, unspecified site; F41.9 Anxiety disorder, unspecified; E03.9 Hypothyroidism, unspecified; Z66 Do not resuscitate; B96.20 Unspecified Escherichia coli [E. coli] as the cause of diseases classified elsewhere; R33.9 Retention of urine, unspecified; Z20.822 Contact with and (suspected) exposure to COVID-19; Z90.710 Acquired absence of both cervix and uterus; Z88.2 Allergy status to sulfonamides; Z88.1 Allergy status to other antibiotic agents; Z91.012 Allergy to eggs; Z91.013 Allergy to seafood; Z88.8 Allergy status to other drugs, medicaments and biological substances; Z78.1 Physical restraint status; Z79.51 Long term (current) use of inhaled steroids; Z79.899 Other long term (current) drug therapy
CPT/HCPCS: 36415; 36416; 70450; 71045; 80048; 80053; 81001; 83735; 83880; 84100; 84145; 84443; 84484; 85025; 85027; 85610; 85730; 87040; 87077; 87086; 87186; 93005; 93010; 95816; 95819; 95957; 96365; 96372; 96375; J1630; J1650; J1956; J2060; J3486; J3490; J7120

== ENCOUNTER 2023-03-22 10:27 | Emergency (ER) | payer OTHER ==
[2023-03-22 12:45] LABS: Bacteria/HPF 3+ HPF (None Seen); Bilirubin Negative (Negative); Blood, Urine Negative (Negative); CAUTI Indications for Culture Dysuria,urgency,freq; Clarity Clear (Clear); Glucose, Urine (Dipstick) Normal (Negative); Ketone, Urine Negative (Negative); Leukocyte 250 Leu/uL (Negative); Nitrite Negative (Negative); Protein, Urine (Dipstick) Negative (Neg-Trace); RBC/HPF 0-3 HPF (0-3); Specific Gravity, Urine 1.011 (1.002-1.036); Squamous Epithelial None Seen HPF (0-3); Urobilinogen Normal mg/dL (Less than 2)
[2023-03-22 12:47] LABS: Urine Culture Reflex Yes Yes
== END 2023-03-22 13:00 | disposition home or self-care (01) ==
LOC: ERS 10:27
DX: N39.0 Urinary tract infection, site not specified (principal); R33.9 Retention of urine, unspecified; F03.90 Unspecified dementia, unspecified severity, without behavioral disturbance, psychotic disturbance, mood disturbance, and anxiety; Z87.891 Personal history of nicotine dependence; Z79.899 Other long term (current) drug therapy
CPT/HCPCS: 51702; 81001; 87086

== ENCOUNTER 2023-03-27 19:21 | Emergency (ER) | payer OTHER ==
[2023-03-27] MEDS ORDERED: QUEtiapine 300 MG TAB PO SCH (19:45)
== END 2023-03-27 20:41 | disposition home or self-care (01) ==
LOC: ERS 19:21
DX: T83.098A Other mechanical complication of other urinary catheter, initial encounter (principal); Z87.891 Personal history of nicotine dependence
CPT/HCPCS: 99283

== ENCOUNTER 2023-04-16 09:14 | Emergency (ER) | payer OTHER ==
[2023-04-16 10:04] LABS: #Eosinphils 0.1 thou/uL (0.0-0.7); #Monocytes 0.6 thou/uL (0.11-0.59); %Basophils 0.6 % (0.0-1.0); %Eosinophils 2.8 % (0.0-10.0); %Neutrophils 59.4 % (42.0-75.0); Hematocrit 34.3 % (36.0-47.0); Mean Corpuscular HGB CONC 32.1 g/dL (32.0-36.0); Mean Corpuscular Hemoglobin 29.8 pg (27.0-31.0); Mean Platelet Volume 9.8 fL (7.4-10.4); Platelet Count 189 10x3/uL (130-400); RBC Distribution Width 14.6 % (11.5-14.5); Red Blood Cell (RBC) Count 3.69 mill/uL (4.20-5.40)
[2023-04-16 10:33] LABS: Troponin I 0.013 ng/mL (< 0.028)
[2023-04-16 10:34] LABS: ALT (SGPT) 9 U/L (8-55); AST (SGOT) 16 U/L (5-34); Albumin 3.7 g/dL (3.4-4.8); Alkaline Phosphatase 56 U/L (40-110); Anion Gap 12 mmol/L (10-20); BUN (Urea Nitrogen) 16 mg/dL (9.8-20.1); Bilirubin, Total 0.5 mg/dL (0.2-1.2); Calc. Creatinine Clearance 0 mL/min (70-130); Carbon Dioxide 23 mmol/L (23-31); Chloride 108 mmol/L (98-107); Estimated GFR 50; Globulin 2.9 g/dL (2.4-3.5); Glucose 87 mg/dL (83-110); Potassium 4.3 mmol/L (3.5-5.1); Protein, Total 6.6 g/dL (5.8-8.1); Sodium 139 mmol/L (136-145)
[2023-04-16] MEDS ORDERED: Haloperidol Lactate 5 MG/ML VIAL ONE (11:33)
[2023-04-16] MEDS ORDERED: Aspirin Chewable 81 MG TAB ONE (11:33)
[2023-04-16 13:25] LABS: Troponin I 0.022 ng/mL (< 0.028)
== END 2023-04-16 13:37 | disposition home or self-care (01) ==
LOC: ERS 09:14
DX: R07.9 Chest pain, unspecified (principal); Z87.891 Personal history of nicotine dependence
CPT/HCPCS: 71045; 80053; 84484; 85025; 93005; 96374; J1630

== ENCOUNTER 2023-05-10 10:41 | Emergency (ER) | payer OTHER | END 2023-05-10 12:24 | disposition home or self-care (01) | LOC: ERS 10:41 | DX: Z71.1 Person with feared health complaint in whom no diagnosis is made (principal); Z87.891 Personal history of nicotine dependence | CPT/HCPCS: 74022 ==

== ENCOUNTER 2023-05-29 05:55 | Inpatient (IN) | payer OTHER ==
[2023-05-29 06:34] LABS: Actual Bicarbonate (HCO3v) 22.2 mEq/L (22-28); Analyzer IN Cardio ER; Base Excess 0.4 mEq/L (-2.0 to +3.0); Calcium, Ionized (venous) 1.07 mmol/L (1.16-1.32); Chloride (VBG) 108 mmol/L (98-106); Hematocrit-VBG 32 % (36.0-47.0); Potassium (VBG) 3.52 mmol/L (3.70-5.30); Sodium 140 mmol/L (133-146); pH (venous) 7.531 (7.32-7.43)
[2023-05-29 06:35] LABS: #Eosinphils 0.2 thou/uL (0.0-0.7); #Monocytes 0.6 thou/uL (0.11-0.59); #Neutrophils 2.7 thou/uL (1.40-6.50); %Basophils 0.8 % (0.0-1.0); %Eosinophils 4.2 % (0.0-10.0); %Lymphocytes 30.2 % (21.0-51.0); %Monocytes 12.2 % (0.0-10.0); %Neutrophils 52.4 % (42.0-75.0); Hematocrit 28.9 % (36.0-47.0); Hemoglobin 9.6 g/dL (12.0-16.0); Mean Corpuscular HGB CONC 33.2 g/dL (32.0-36.0); Mean Corpuscular Hemoglobin 30.7 pg (27.0-31.0); Mean Corpuscular Volume 92.3 fl (78.0-98.0); Platelet Count 203 10x3/uL (130-400); RBC Distribution Width 14.6 % (11.5-14.5); Red Blood Cell (RBC) Count 3.13 mill/uL (4.20-5.40); White Blood Cell (WBC) Count 5.2 10x3/uL (4.8-10.8)
[2023-05-29 07:05] LABS: ALT (SGPT) 7 U/L (8-55); AST (SGOT) 10 U/L (5-34); Albumin 3.7 g/dL (3.4-4.8); Alkaline Phosphatase 55 U/L (40-110); Anion Gap 11 mmol/L (10-20); BUN (Urea Nitrogen) 18 mg/dL (9.8-20.1); Bilirubin, Total 0.5 mg/dL (0.2-1.2); Calc. Creatinine Clearance 0 mL/min (70-130); Calcium 8.6 mg/dL (7.8-10.44); Carbon Dioxide 24 mmol/L (23-31); Chloride 109 mmol/L (98-107); Estimated GFR 48; Globulin 2.3 g/dL (2.4-3.5); Glucose 91 mg/dL (83-110); Lipase 18 U/L (8-78); Magnesium 2.2 mg/dL (1.6-2.6); Potassium 3.5 mmol/L (3.5-5.1); Sodium 140 mmol/L (136-145)
[2023-05-29 07:27] LABS: Bilirubin Negative (Negative); Blood, Urine Trace (Negative); CAUTI Indications for Culture Alt mental st,lethar; Clarity Clear (Clear); Glucose, Urine (Dipstick) Normal (Negative); Ketone, Urine Negative (Negative); Leukocyte 500 Leu/uL (Negative); Nitrite Negative (Negative); Protein, Urine (Dipstick) Negative (Neg-Trace); RBC/HPF 0-3 HPF (0-3); Specific Gravity, Urine 1.004 (1.002-1.036); Squamous Epithelial 0-3 HPF (0-3); Urobilinogen Normal mg/dL (Less than 2); WBC/HPF Greater than 50 HPF (0-3)
[2023-05-29 07:28] LABS: Bacteria/HPF 1+ HPF (None Seen)
[2023-05-29 07:30] LABS: Urine Culture Reflex Yes Yes
[2023-05-29] MEDS ORDERED: LevoFLOXacin 750 mg/D5W 150 ml Premix Bag ONE (08:30)
[2023-05-29] MEDS ORDERED: Ondansetron PF 4 MG/2 ML Vial IVP PRN (08:48)
[2023-05-29] MEDS ORDERED: Sodium Chloride 0.9% 1,000 ML IV SCH (09:00)
[2023-05-29] MEDS ORDERED: ALPRAZolam 0.25 MG TAB PO PRN (12:54)
[2023-05-29] MEDS ORDERED: traZODone HCl 50 MG TAB PO PRN (12:54)
[2023-05-29] MEDS ORDERED: Albuterol 200 PUFF (6.7GM INHALER) INH PRN (12:54)
[2023-05-29] MEDS ORDERED: ALPRAZolam 0.25 MG TAB ONE (13:00)
[2023-05-29] MEDS ORDERED: Sterile Water 10 ML VIAL FS PRN (13:30)
[2023-05-29] MEDS ORDERED: Haloperidol Lactate 5 MG/ML VIAL SLOW IVP SCH (15:15)
[2023-05-29] MEDS: QUEtiapine 100 MG TAB PO SCH (15:27)
[2023-05-30 06:40] LABS: Anion Gap 12 mmol/L (10-20); BUN (Urea Nitrogen) 15 mg/dL (9.8-20.1); Calc. Creatinine Clearance 35 mL/min (70-130); Calcium 8.4 mg/dL (7.8-10.44); Carbon Dioxide 23 mmol/L (23-31); Chloride 111 mmol/L (98-107); Estimated GFR 44; Glucose 92 mg/dL (83-110); Potassium 3.9 mmol/L (3.5-5.1); Sodium 142 mmol/L (136-145)
[2023-05-30 07:17] LABS: #Eosinphils 0.2 thou/uL (0.0-0.7); #Monocytes 0.6 thou/uL (0.11-0.59); #Neutrophils 3.3 thou/uL (1.40-6.50); %Basophils 0.7 % (0.0-1.0); %Eosinophils 3.5 % (0.0-10.0); %Lymphocytes 23.7 % (21.0-51.0); %Monocytes 11.7 % (0.0-10.0); %Neutrophils 60.2 % (42.0-75.0); Hematocrit 32.3 % (36.0-47.0); Mean Corpuscular Hemoglobin 30.1 pg (27.0-31.0); Mean Platelet Volume 11.7 fL (7.4-10.4); Platelet Count 159 10x3/uL (130-400); RBC Distribution Width 14.6 % (11.5-14.5); Red Blood Cell (RBC) Count 3.32 mill/uL (4.20-5.40); White Blood Cell (WBC) Count 5.5 10x3/uL (4.8-10.8)
[2023-05-30 07:47] LABS: Mean Corpuscular Volume 97.3 fl (78.0-98.0)
[2023-05-30] MEDS ORDERED: LevoFLOXacin 750 mg/D5W 750 MG in Premix 1 BAG IVPB SCH (09:00)
[2023-05-30] MEDS: OLANZapine 10 MG VIAL IM SCH (09:29)
[2023-05-30] MEDS: Venlafaxine XR 37.5 MG CAP PO SCH (09:30)
[2023-05-30] MEDS: Cholecalciferol (Vitamin D3) 400 UNITS TAB PO SCH (09:30)
[2023-05-30] MEDS: QUEtiapine 100 MG TAB PO SCH (17:44)
[2023-05-31 06:05] LABS: #Eosinphils 0.2 thou/uL (0.0-0.7); #Monocytes 0.6 thou/uL (0.11-0.59); %Basophils 0.6 % (0.0-1.0); %Lymphocytes 22.9 % (21.0-51.0); %Monocytes 11.8 % (0.0-10.0); %Neutrophils 60.5 % (42.0-75.0); Hemoglobin 9.8 g/dL (12.0-16.0); Mean Corpuscular HGB CONC 31.6 g/dL (32.0-36.0); Mean Corpuscular Hemoglobin 29.8 pg (27.0-31.0); Mean Corpuscular Volume 94.2 fl (78.0-98.0); Mean Platelet Volume 10.1 fL (7.4-10.4); Platelet Count 209 10x3/uL (130-400); RBC Distribution Width 14.4 % (11.5-14.5); Red Blood Cell (RBC) Count 3.29 mill/uL (4.20-5.40)
[2023-05-31 06:36] LABS: Anion Gap 11 mmol/L (10-20); BUN (Urea Nitrogen) 13 mg/dL (9.8-20.1); Calc. Creatinine Clearance 40 mL/min (70-130); Calcium 8.6 mg/dL (7.8-10.44); Carbon Dioxide 24 mmol/L (23-31); Chloride 110 mmol/L (98-107); Estimated GFR 50; Glucose 89 mg/dL (83-110); Potassium 3.7 mmol/L (3.5-5.1); Sodium 141 mmol/L (136-145)
[2023-05-31] MEDS: OLANZapine 10 MG VIAL IM SCH (08:54)
[2023-05-31] MEDS: Venlafaxine XR 37.5 MG CAP PO SCH (08:54)
[2023-05-31] MEDS: Cholecalciferol (Vitamin D3) 400 UNITS TAB PO SCH (08:54)
[2023-05-31] MEDS: QUEtiapine 100 MG TAB PO SCH (15:18)
[2023-06-01 06:52] LABS: #Eosinphils 0.2 thou/uL (0.0-0.7); #Monocytes 0.5 thou/uL (0.11-0.59); #Neutrophils 3.1 thou/uL (1.40-6.50); %Basophils 0.6 % (0.0-1.0); %Eosinophils 3.8 % (0.0-10.0); %Lymphocytes 25.4 % (21.0-51.0); %Monocytes 9.9 % (0.0-10.0); %Neutrophils 59.9 % (42.0-75.0); Hematocrit 33.6 % (36.0-47.0); Hemoglobin 10.6 g/dL (12.0-16.0); Mean Corpuscular HGB CONC 31.5 g/dL (32.0-36.0); Mean Corpuscular Hemoglobin 29.2 pg (27.0-31.0); Mean Corpuscular Volume 92.6 fl (78.0-98.0); Mean Platelet Volume 10.3 fL (7.4-10.4); Platelet Count 227 10x3/uL (130-400); RBC Distribution Width 14.4 % (11.5-14.5); Red Blood Cell (RBC) Count 3.63 mill/uL (4.20-5.40); White Blood Cell (WBC) Count 5.2 10x3/uL (4.8-10.8)
[2023-06-01 07:16] LABS: Anion Gap 11 mmol/L (10-20); BUN (Urea Nitrogen) 17 mg/dL (9.8-20.1); Calc. Creatinine Clearance 36 mL/min (70-130); Calcium 8.5 mg/dL (7.8-10.44); Carbon Dioxide 23 mmol/L (23-31); Chloride 109 mmol/L (98-107); Estimated GFR 45; Glucose 98 mg/dL (83-110); Potassium 3.9 mmol/L (3.5-5.1); Sodium 139 mmol/L (136-145)
[2023-06-01] MEDS: Cholecalciferol (Vitamin D3) 400 UNITS TAB PO SCH (08:42)
[2023-06-01] MEDS: OLANZapine 10 MG VIAL IM SCH (08:42)
[2023-06-01] MEDS: Venlafaxine XR 37.5 MG CAP PO SCH (08:42)
[2023-06-01] MEDS ORDERED: LevoFLOXacin 750 mg/D5W 750 MG in Premix 1 BAG IVPB SCH (09:00)
[2023-06-01 12:16] VITALS: BP 160/64; TEMP 97.9
== END 2023-06-01 12:30 | disposition home or self-care (01) | DRG 689 ==
LOC: ERS 05:55 → ERHOLD 08:50 → T4-B 14:49 → OBSVTOIN 19:08
PROVIDERS: ADMIT Family Medicine; ATTEND Internal Medicine
DX: N39.0 Urinary tract infection, site not specified (principal); G93.41 Metabolic encephalopathy; F03.94 Unspecified dementia, unspecified severity, with anxiety; J45.909 Unspecified asthma, uncomplicated; E03.9 Hypothyroidism, unspecified; N18.9 Chronic kidney disease, unspecified; Z96.653 Presence of artificial knee joint, bilateral; N31.9 Neuromuscular dysfunction of bladder, unspecified; Z91.041 Radiographic dye allergy status; Z79.899 Other long term (current) drug therapy; Z91.012 Allergy to eggs; Z91.013 Allergy to seafood; Z88.2 Allergy status to sulfonamides; Z91.048 Other nonmedicinal substance allergy status; Z91.09 Other allergy status, other than to drugs and biological substances; Z79.51 Long term (current) use of inhaled steroids; Z90.710 Acquired absence of both cervix and uterus
CPT/HCPCS: 36415; 36416; 51702; 70450; 72125; 74176; 80048; 80053; 81001; 82805; 83605; 83690; 83735; 84443; 84484; 85025; 87040; 87077; 87086; 87186; 93005; 94760; 96361; 96365; 96372; 96375; 96376; G0378; J1630; J1650; J1956; J7050

== ENCOUNTER 2023-06-02 02:11 | Emergency (ER) | payer OTHER ==
[2023-06-02 03:31] LABS: #Eosinphils 0.3 thou/uL (0.0-0.7); #Monocytes 0.7 thou/uL (0.11-0.59); #Neutrophils 4.9 thou/uL (1.40-6.50); %Basophils 0.6 % (0.0-1.0); %Eosinophils 3.4 % (0.0-10.0); %Lymphocytes 18.1 % (21.0-51.0); %Monocytes 9.7 % (0.0-10.0); %Neutrophils 67.9 % (42.0-75.0); Hematocrit 33.9 % (36.0-47.0); Hemoglobin 10.8 g/dL (12.0-16.0); Mean Corpuscular HGB CONC 31.9 g/dL (32.0-36.0); Mean Corpuscular Hemoglobin 29.8 pg (27.0-31.0); Mean Corpuscular Volume 93.4 fl (78.0-98.0); Mean Platelet Volume 9.8 fL (7.4-10.4); Platelet Count 247 10x3/uL (130-400); RBC Distribution Width 14.4 % (11.5-14.5); Red Blood Cell (RBC) Count 3.63 mill/uL (4.20-5.40); White Blood Cell (WBC) Count 7.3 10x3/uL (4.8-10.8)
[2023-06-02 03:44] LABS: INR-International Normal Ratio 1.1; PTT 28.3 sec (22.9-36.1); Prothrombin Time 14.7 sec (12.0-14.7)
[2023-06-02 03:52] LABS: ALT (SGPT) Less than 7 U/L (8-55); AST (SGOT) 9 U/L (5-34); Albumin 3.7 g/dL (3.4-4.8); Alkaline Phosphatase 53 U/L (40-110); Anion Gap 14 mmol/L (10-20); BUN (Urea Nitrogen) 20 mg/dL (9.8-20.1); Bilirubin, Total 0.6 mg/dL (0.2-1.2); Calc. Creatinine Clearance 0 mL/min (70-130); Carbon Dioxide 23 mmol/L (23-31); Chloride 107 mmol/L (98-107); Estimated GFR 40; Globulin 2.8 g/dL (2.4-3.5); Glucose 101 mg/dL (83-110); Potassium 3.8 mmol/L (3.5-5.1); Protein, Total 6.5 g/dL (5.8-8.1); Sodium 140 mmol/L (136-145)
== END 2023-06-02 06:48 | disposition home or self-care (01) ==
LOC: ERS 02:11
DX: S09.90XA Unspecified injury of head, initial encounter (principal); F03.90 Unspecified dementia, unspecified severity, without behavioral disturbance, psychotic disturbance, mood disturbance, and anxiety; Z87.891 Personal history of nicotine dependence; W18.30XA Fall on same level, unspecified, initial encounter
CPT/HCPCS: 36415; 70450; 72125; 80053; 85025; 85610; 85730; 93005

== ENCOUNTER 2023-07-28 14:57 | Emergency (ER) | payer OTHER | END 2023-07-28 15:16 | disposition home or self-care (01) | LOC: ERS 14:57 | DX: S01.81XD Laceration without foreign body of other part of head, subsequent encounter (principal); Z87.891 Personal history of nicotine dependence ==

== ENCOUNTER 2023-09-28 05:01 | Emergency (ER) | payer OTHER ==
[2023-09-28 05:48] LABS: #Eosinphils 0.1 thou/uL (0.0-0.7); #Monocytes 0.5 thou/uL (0.11-0.59); %Basophils 0.5 % (0.0-1.0); %Eosinophils 2.3 % (0.0-10.0); %Lymphocytes 23.7 % (21.0-51.0); %Monocytes 8.6 % (0.0-10.0); %Neutrophils 64.7 % (42.0-75.0); Hemoglobin 10.6 g/dL (12.0-16.0); Mean Corpuscular HGB CONC 31.2 g/dL (32.0-36.0); Mean Corpuscular Hemoglobin 28.3 pg (27.0-31.0); Mean Corpuscular Volume 90.9 fl (78.0-98.0); Mean Platelet Volume 9.9 fL (7.4-10.4); Platelet Count 257 10x3/uL (130-400); RBC Distribution Width 13.4 % (11.5-14.5); Red Blood Cell (RBC) Count 3.74 mill/uL (4.20-5.40); White Blood Cell (WBC) Count 6.1 10x3/uL (4.8-10.8)
[2023-09-28 06:10] LABS: ALT (SGPT) Less than 7 U/L (8-55); AST (SGOT) 8 U/L (5-34); Albumin 3.7 g/dL (3.4-4.8); Alkaline Phosphatase 79 U/L (40-110); Anion Gap 11 mmol/L (10-20); BUN (Urea Nitrogen) 17 mg/dL (9.8-20.1); Bilirubin, Total 0.3 mg/dL (0.2-1.2); Calc. Creatinine Clearance 0 mL/min (70-130); Calcium 9.2 mg/dL (7.8-10.44); Carbon Dioxide 25 mmol/L (23-31); Chloride 109 mmol/L (98-107); Estimated GFR 49; Globulin 2.6 g/dL (2.4-3.5); Glucose 95 mg/dL (83-110); Potassium 4.1 mmol/L (3.5-5.1); Protein, Total 6.3 g/dL (5.8-8.1); Sodium 141 mmol/L (136-145)
[2023-09-28 10:04] LABS: Bacteria/HPF None Seen HPF (None Seen); Bilirubin Negative (Negative); Blood, Urine Trace (Negative); CAUTI Indications for Culture Alt mental st,lethar; Clarity Clear (Clear); Glucose, Urine (Dipstick) Normal (Negative); Ketone, Urine Negative (Negative); Leukocyte 250 Leu/uL (Negative); Nitrite Negative (Negative); Protein, Urine (Dipstick) Negative (Neg-Trace); RBC/HPF 0-3 HPF (0-3); Specific Gravity, Urine 1.005 (1.002-1.036); Squamous Epithelial None Seen HPF (0-3); Urobilinogen Normal mg/dL (Less than 2); pH, Urine 6.5 (5.0-9.0)
[2023-09-28 10:13] LABS: Urine Culture Reflex Yes Yes
== END 2023-09-28 09:29 | disposition home or self-care (01) ==
LOC: ERS 05:01
DX: F03.90 Unspecified dementia, unspecified severity, without behavioral disturbance, psychotic disturbance, mood disturbance, and anxiety (principal); Z87.891 Personal history of nicotine dependence
CPT/HCPCS: 36415; 70450; 71045; 72125; 80053; 81001; 84484; 85025; 87086; 93005

== ENCOUNTER 2023-12-28 15:18 | Outpatient (CLI) | payer OTHER | END 2023-12-28 15:19 | disposition home or self-care (01) | LOC: BICRAD 15:18 | PROVIDERS: ATTEND Family Medicine | DX: M25.511 Pain in right shoulder (principal); M79.601 Pain in right arm; M19.011 Primary osteoarthritis, right shoulder ==

== ENCOUNTER 2024-01-09 06:55 | Emergency (ER) | payer OTHER ==
[2024-01-09 10:35] LABS: Bilirubin Negative (Negative); Blood, Urine 1+ (Negative); CAUTI Indications for Culture Alt mental st,lethar; Clarity Extra Turbid (Clear); Glucose, Urine (Dipstick) Normal (Negative); Ketone, Urine Negative (Negative); Leukocyte 500 Leu/uL (Negative); Nitrite Negative (Negative); Protein, Urine (Dipstick) 30 mg/dL (Neg-Trace); RBC/HPF Greater than 50 HPF (0-3); Specific Gravity, Urine 1.006 (1.002-1.036); Squamous Epithelial 0-3 HPF (0-3); Urobilinogen Normal mg/dL (Less than 2); WBC/HPF Greater than 50 HPF (0-3)
[2024-01-09 10:47] LABS: Bacteria/HPF 3+ HPF (None Seen)
[2024-01-09 10:48] LABS: Renal Epithelial 0-3 HPF (None Seen)
[2024-01-09 10:50] LABS: Urine Culture Reflex Yes Yes
== END 2024-01-09 11:30 | disposition home or self-care (01) ==
LOC: ERS 06:55
DX: N39.0 Urinary tract infection, site not specified (principal); W19.XXXA Unspecified fall, initial encounter
CPT/HCPCS: 71045; 81001; 87086; 93005

== ENCOUNTER 2024-04-04 12:16 | Emergency (ER) | payer OTHER ==
[2024-04-04 13:20] LABS: #Basophils 0.03 10x3/uL (0.0-0.2); %Basophils 0.5 % (0.0-1.0); %Eosinophils 0.8 % (0.0-10.0); %Lymphocytes 14.3 % (21.0-51.0); %Monocytes 10.5 % (0.0-10.0); %Neutrophils 73.4 % (42.0-75.0); Hematocrit 31.6 % (36.0-47.0); Hemoglobin 10.2 g/dL (12.0-16.0); Mean Corpuscular HGB CONC 32.3 g/dL (32.0-36.0); Mean Corpuscular Hemoglobin 29.1 pg (27.0-31.0); Mean Platelet Volume 10.1 fL (7.4-10.4); Platelet Count 266 10x3/uL (130-400); Red Blood Cell (RBC) Count 3.51 mill/uL (4.20-5.40)
[2024-04-04 13:40] LABS: ALT (SGPT) Less than 5 U/L (8-55); AST (SGOT) 6 U/L (5-34); Alkaline Phosphatase 79 U/L (40-110); Anion Gap 10 mmol/L (10-20); BUN (Urea Nitrogen) 17 mg/dL (9.8-20.1); Bilirubin, Total 0.7 mg/dL (0.2-1.2); CK (CPK) 14 U/L (29-168); Calc. Creatinine Clearance 0 mL/min (70-130); Calcium 8.8 mg/dL (7.8-10.44); Carbon Dioxide 28 mmol/L (23-31); Chloride 102 mmol/L (98-107); Estimated GFR 31; Globulin 3.4 g/dL (2.4-3.5); Glucose 92 mg/dL (83-110); Lipase 10 U/L (8-78); Magnesium 2.2 mg/dL (1.6-2.6); Potassium 3.1 mmol/L (3.5-5.1); Protein, Total 6.4 g/dL (5.8-8.1); Sodium 137 mmol/L (136-145)
[2024-04-04 13:42] LABS: Bacteria/HPF 4+ HPF (None Seen); Bilirubin Negative (Negative); Blood, Urine 1+ (Negative); CAUTI Indications for Culture Alt mental st,lethar; Clarity Extra Turbid (Clear); Glucose, Urine (Dipstick) Normal (Negative); Ketone, Urine Negative (Negative); Leukocyte 500 Leu/uL (Negative); Nitrite Negative (Negative); Protein, Urine (Dipstick) 50 mg/dL (Neg-Trace); RBC/HPF 21-50 HPF (0-3); Specific Gravity, Urine 1.007 (1.002-1.036); Squamous Epithelial None Seen HPF (0-3); Urobilinogen Normal mg/dL (Less than 2); WBC/HPF Greater than 50 HPF (0-3)
[2024-04-04 13:43] LABS: Troponin I 0.013 ng/mL (< 0.028)
[2024-04-04 13:44] LABS: Urine Culture Reflex Yes Yes
== END 2024-04-04 16:07 | disposition home or self-care (01) ==
LOC: ERS 12:16
DX: S32.010A Wedge compression fracture of first lumbar vertebra, initial encounter for closed fracture (principal); K52.9 Noninfective gastroenteritis and colitis, unspecified; R33.9 Retention of urine, unspecified; X58.XXXA Exposure to other specified factors, initial encounter
CPT/HCPCS: 51701; 74176; 80053; 81001; 82550; 83690; 83735; 84484; 85025; 87077; 87086; 87186; 93005; 96360; 96361

== ENCOUNTER 2024-04-16 18:23 | Emergency (ER) | payer OTHER ==
[2024-04-16 20:26] LABS: Bacteria/HPF None Seen HPF (None Seen); Bilirubin Negative (Negative); Blood, Urine 1+ (Negative); CAUTI Indications for Culture Immunosuppressed; Clarity Clear (Clear); Glucose, Urine (Dipstick) Normal (Negative); Ketone, Urine Negative (Negative); Leukocyte 75 Leu/uL (Negative); Nitrite Negative (Negative); Protein, Urine (Dipstick) 10 mg/dL (Neg-Trace); Specific Gravity, Urine 1.011 (1.002-1.036); Squamous Epithelial 0-3 HPF (0-3); Urobilinogen Normal mg/dL (Less than 2); pH, Urine 5.5 (5.0-9.0)
[2024-04-16 20:27] LABS: Urine Culture Reflex Yes Yes
== END 2024-04-16 20:40 | disposition home or self-care (01) ==
LOC: ERS 18:23
DX: R31.9 Hematuria, unspecified (principal)
CPT/HCPCS: 51701; 81001; 87086; 99283

== ENCOUNTER 2024-06-08 09:58 | Emergency (ER) | payer OTHER ==
[2024-06-08] MEDS ORDERED: Acetaminophen 500 MG TAB ONE (10:22)
== END 2024-06-08 11:56 | disposition home or self-care (01) ==
LOC: ERS 09:58
DX: S09.90XA Unspecified injury of head, initial encounter (principal); Z96.653 Presence of artificial knee joint, bilateral; W19.XXXA Unspecified fall, initial encounter
CPT/HCPCS: 70450; 72125

== ENCOUNTER 2024-06-10 12:30 | Inpatient (IN) | payer OTHER ==
[2024-06-10] MEDS ORDERED: Haloperidol Lactate 5 MG/ML VIAL ONE (12:49)
[2024-06-10 13:06] LABS: #Basophils 0.04 10x3/uL (0.0-0.2); %Basophils 0.8 % (0.0-1.0); %Eosinophils 0.8 % (0.0-10.0); %Lymphocytes 21.3 % (21.0-51.0); %Monocytes 9.1 % (0.0-10.0); %Neutrophils 67.6 % (42.0-75.0); Hematocrit 25.5 % (36.0-47.0); Mean Corpuscular HGB CONC 31.4 g/dL (32.0-36.0); Mean Corpuscular Hemoglobin 26.1 pg (27.0-31.0); Mean Corpuscular Volume 83.3 fL (78.0-98.0); Platelet Count 299 10x3/uL (130-400); RBC Distribution Width 15.5 % (11.5-14.5); Red Blood Cell (RBC) Count 3.06 mill/uL (4.20-5.40)
[2024-06-10 13:25] LABS: Lipase 7 U/L (8-78)
[2024-06-10 13:26] LABS: ALT (SGPT) Less than 5 U/L (8-55); AST (SGOT) 12 U/L (5-34); Albumin 3.3 g/dL (3.4-4.8); Alkaline Phosphatase 63 U/L (40-110); Anion Gap 15 mmol/L (10-20); BUN (Urea Nitrogen) 10 mg/dL (9.8-20.1); Bilirubin, Total 0.5 mg/dL (0.2-1.2); Calc. Creatinine Clearance 0 mL/min (70-130); Calcium 8.8 mg/dL (7.8-10.44); Carbon Dioxide 26 mmol/L (23-31); Chloride 102 mmol/L (98-107); Estimated GFR 55; Globulin 3.6 g/dL (2.4-3.5); Glucose 93 mg/dL (83-110); Potassium 3.3 mmol/L (3.5-5.1); Protein, Total 6.9 g/dL (5.8-8.1); Sodium 140 mmol/L (136-145)
[2024-06-10 13:27] LABS: Acetaminophen Less than 10 mcg/mL (Less than 10); Alcohol Less than 10.0 mg/dL (Less than 10); Salicylate Less than 8.0 mg/dL (Less than 8.0)
[2024-06-10 13:31] LABS: Troponin I 0.025 ng/mL (< 0.028)
[2024-06-10] MEDS ORDERED: Lorazepam 2 MG/ML VIAL ONE ×2 (13:36→16:50)
[2024-06-10 15:17] LABS: Bacteria/HPF None Seen HPF (None Seen); Bilirubin Negative (Negative); Blood, Urine Trace (Negative); CAUTI Indications for Culture Dysuria,urgency,freq; Clarity Clear (Clear); Glucose, Urine (Dipstick) Normal (Negative); Ketone, Urine Negative (Negative); Leukocyte 500 Leu/uL (Negative); Nitrite Negative (Negative); Protein, Urine (Dipstick) 10 mg/dL (Neg-Trace); RBC/HPF 0-3 HPF (0-3); Specific Gravity, Urine 1.003 (1.002-1.036); Squamous Epithelial 0-3 HPF (0-3); Urobilinogen Normal mg/dL (Less than 2); pH, Urine 6.5 (5.0-9.0)
[2024-06-10 15:18] LABS: Amphetamine Not Detected (NotDetected); Barbiturates Screen Not Detected (NotDetected); Benzodiazepine Screen Not Detected (NotDetected); Cocaine Metabolite Screen Not Detected (NotDetected); Methadone Not Detected (NotDetected); Methamphetamine Not Detected (NotDetected); Opiate Screen Not Detected (NotDetected); Oxycodone Screen Not Detected (NotDetected); Phencyclidine (PCP) Not Detected (NotDetected); THC/Cannabinoid Screen Not Detected (NotDetected); Tricyclic Screen Not Detected (NotDetected)
[2024-06-10 15:19] LABS: Urine Culture Reflex Yes Yes
[2024-06-10] MEDS ORDERED: LevoFLOXacin 750 mg/D5W 150 ml Premix Bag ONE (15:38)
[2024-06-10 17:43] VITALS: BMI 19.1
[2024-06-10] MEDS ORDERED: Acetaminophen 325 MG TAB PO PRN (17:43)
[2024-06-10] MEDS ORDERED: Acetaminophen 650 MG Suppository PR PRN (17:43)
[2024-06-10] MEDS: Melatonin 3 MG TAB PO SCH (20:10)
[2024-06-10] MEDS: QUEtiapine 100 MG TAB PO SCH (20:10)
[2024-06-11 06:44] LABS: #Basophils 0.05 10x3/uL (0.0-0.2); %Eosinophils 2.4 % (0.0-10.0); %Lymphocytes 22.9 % (21.0-51.0); %Monocytes 13.7 % (0.0-10.0); %Neutrophils 59.8 % (42.0-75.0); Hematocrit 23.1 % (36.0-47.0); Mean Corpuscular HGB CONC 30.3 g/dL (32.0-36.0); Mean Corpuscular Hemoglobin 25.8 pg (27.0-31.0); Mean Corpuscular Volume 85.2 fL (78.0-98.0); Platelet Count 208 10x3/uL (130-400); RBC Distribution Width 15.4 % (11.5-14.5); Red Blood Cell (RBC) Count 2.71 mill/uL (4.20-5.40)
[2024-06-11 07:13] LABS: Anion Gap 12 mmol/L (10-20); BUN (Urea Nitrogen) 11 mg/dL (9.8-20.1); Calc. Creatinine Clearance 30 mL/min (70-130); Calcium 8.3 mg/dL (7.8-10.44); Carbon Dioxide 30 mmol/L (23-31); Chloride 103 mmol/L (98-107); Estimated GFR 52; Glucose 81 mg/dL (83-110); Potassium 2.3 mmol/L (3.5-5.1); Sodium 143 mmol/L (136-145)
[2024-06-11 09:26] VITALS: BMI 19.1
[2024-06-11] MEDS: Enoxaparin 40 MG (0.4 mL) SYRINGE SC SCH (09:30)
[2024-06-11] MEDS: Polyethylene Glycol 3350 17 GM Packet PO SCH (09:31)
[2024-06-11] MEDS ORDERED: Albuterol 1.25 MG (3 mL) NEB NEB PRN (10:49)
[2024-06-11] MEDS: ALPRAZolam 0.25 MG TAB PO PRN (12:49)
[2024-06-11] MEDS: Potassium Chloride 20 MEQ TAB PO SCH (14:46)
[2024-06-11] MEDS: LevoFLOXacin 250 mg/D5W 250 MG in Premix 1 BAG IVPB SCH (15:00)
[2024-06-11] MEDS ORDERED: Electrolyte Replacement Protocol FS SCH (16:16)
[2024-06-11] MEDS: Bisacodyl 10 MG SUPP PR SCH (16:51)
[2024-06-11] MEDS: Docusate 100 MG CAP PO SCH (19:08)
[2024-06-11] MEDS: QUEtiapine 25 MG TAB PO SCH ×2 (19:08)
[2024-06-12 08:34] LABS: #Basophils Less than 0.03 10x3/uL (0.0-0.2); %Basophils 0.2 % (0.0-1.0); %Eosinophils 1.6 % (0.0-10.0); %Lymphocytes 17.1 % (21.0-51.0); %Monocytes 11.3 % (0.0-10.0); %Neutrophils 69.4 % (42.0-75.0); Hematocrit 26.9 % (36.0-47.0); Hemoglobin 8.1 g/dL (12.0-16.0); Mean Corpuscular HGB CONC 30.1 g/dL (32.0-36.0); Mean Corpuscular Hemoglobin 25.8 pg (27.0-31.0); Mean Corpuscular Volume 85.7 fL (78.0-98.0); Mean Platelet Volume 9.4 fL (7.4-10.4); Platelet Count 233 10x3/uL (130-400); Red Blood Cell (RBC) Count 3.14 mill/uL (4.20-5.40)
[2024-06-12 08:51] LABS: Anion Gap 11 mmol/L (10-20); BUN (Urea Nitrogen) 12 mg/dL (9.8-20.1); Calc. Creatinine Clearance 29 mL/min (70-130); Calcium 8.5 mg/dL (7.8-10.44); Carbon Dioxide 29 mmol/L (23-31); Chloride 104 mmol/L (98-107); Estimated GFR 50; Glucose 101 mg/dL (83-110); Magnesium 2.1 mg/dL (1.6-2.6); Potassium 2.9 mmol/L (3.5-5.1); Sodium 141 mmol/L (136-145)
[2024-06-12] MEDS: Venlafaxine HCl XR 75 MG CAP PO SCH (09:33)
[2024-06-12] MEDS: Potassium Chloride 20 MEQ in Premix 1 BAG IVPB SCH (12:17)
[2024-06-12] MEDS: Ondansetron ODT 4 MG TAB PO PRN (13:25)
[2024-06-12] MEDS ORDERED: Potassium Chloride 20 MEQ in Premix 1 BAG IVPB SCH (16:00)
[2024-06-12] MEDS: Potassium Chloride 20 MEQ TAB PO SCH ×2 (16:49→19:21)
[2024-06-12] MEDS: traZODone HCl 50 MG TAB PO PRN (21:10)
[2024-06-13 05:20] LABS: #Basophils Less than 0.03 10x3/uL (0.0-0.2); %Basophils 0.3 % (0.0-1.0); %Eosinophils 2.3 % (0.0-10.0); %Lymphocytes 25.4 % (21.0-51.0); %Monocytes 9.8 % (0.0-10.0); %Neutrophils 61.9 % (42.0-75.0); Hematocrit 26.4 % (36.0-47.0); Hemoglobin 8.1 g/dL (12.0-16.0); Mean Corpuscular HGB CONC 30.7 g/dL (32.0-36.0); Mean Corpuscular Volume 84.9 fL (78.0-98.0); Mean Platelet Volume 9.3 fL (7.4-10.4); Platelet Count 204 10x3/uL (130-400); RBC Distribution Width 16.1 % (11.5-14.5); Red Blood Cell (RBC) Count 3.11 mill/uL (4.20-5.40)
[2024-06-13 06:21] VITALS: TEMP 97.9
[2024-06-13 06:28] LABS: Anion Gap 12 mmol/L (10-20); BUN (Urea Nitrogen) 14 mg/dL (9.8-20.1); Calc. Creatinine Clearance 30 mL/min (70-130); Calcium 8.2 mg/dL (7.8-10.44); Carbon Dioxide 27 mmol/L (23-31); Chloride 106 mmol/L (98-107); Estimated GFR 50; Glucose 97 mg/dL (83-110); Potassium 3.6 mmol/L (3.5-5.1); Sodium 141 mmol/L (136-145)
[2024-06-13 07:10] VITALS: BP 158/80
[2024-06-13] MEDS: Enoxaparin 30 MG (0.3 mL) SYRINGE SC SCH (07:59)
== END 2024-06-13 11:26 | disposition home or self-care (01) | DRG 689 ==
LOC: ERS 12:30 → T4-A 16:15
PROVIDERS: ADMIT Family Medicine; ATTEND Internal Medicine
DX: N30.00 Acute cystitis without hematuria (principal); E43 Unspecified severe protein-calorie malnutrition; G93.41 Metabolic encephalopathy; Z68.1 Body mass index [BMI] 19.9 or less, adult; F02.C3 Dementia in other diseases classified elsewhere, severe, with mood disturbance; F05 Delirium due to known physiological condition; F02.C18 Dementia in other diseases classified elsewhere, severe, with other behavioral disturbance; B96.89 Other specified bacterial agents as the cause of diseases classified elsewhere; E03.9 Hypothyroidism, unspecified; J45.20 Mild intermittent asthma, uncomplicated; N31.9 Neuromuscular dysfunction of bladder, unspecified; Z91.041 Radiographic dye allergy status; Z91.012 Allergy to eggs; Z91.018 Allergy to other foods; Z91.013 Allergy to seafood; Z91.048 Other nonmedicinal substance allergy status; Z88.8 Allergy status to other drugs, medicaments and biological substances; Z88.1 Allergy status to other antibiotic agents; Z79.899 Other long term (current) drug therapy; Z88.2 Allergy status to sulfonamides; G30.9 Alzheimer's disease, unspecified
CPT/HCPCS: 36415; 70450; 71045; 72125; 76770; 80048; 80053; 80306; 80307; 81001; 82140; 83690; 83735; 84443; 84484; 85025; 87086; 93005; 94760; 96365; 96372; 96375; 96376; J1630; J1650; J1956; J2060; J3480; Q0162

== ENCOUNTER 2024-07-10 00:53 | Emergency (ER) | payer OTHER | END 2024-07-10 04:20 | disposition home or self-care (01) | LOC: ERS 00:53 | DX: S00.93XA Contusion of unspecified part of head, initial encounter (principal); Z55.6 Problems related to health literacy; W19.XXXA Unspecified fall, initial encounter; W22.8XXA Striking against or struck by other objects, initial encounter | CPT/HCPCS: 70450; 72125 ==

== ENCOUNTER 2024-07-27 05:07 | Emergency (ER) | payer OTHER ==
[2024-07-27] MEDS ORDERED: Bupivacaine PF 0.5% 30 ML VIAL ONE (05:33)
== END 2024-07-27 08:22 | disposition home or self-care (01) ==
LOC: ERS 05:07
DX: S01.81XA Laceration without foreign body of other part of head, initial encounter (principal); S61.512A Laceration without foreign body of left wrist, initial encounter; S51.811A Laceration without foreign body of right forearm, initial encounter; Z55.6 Problems related to health literacy; Z91.81 History of falling; W01.198A Fall on same level from slipping, tripping and stumbling with subsequent striking against other object, initial encounter
CPT/HCPCS: 70450; J0665; 12011

== ENCOUNTER 2024-08-04 15:25 | Emergency (ER) | payer OTHER | END 2024-08-04 16:05 | disposition home or self-care (01) | LOC: ERS 15:25 | DX: S01.81XD Laceration without foreign body of other part of head, subsequent encounter (principal); W01.0XXD Fall on same level from slipping, tripping and stumbling without subsequent striking against object, subsequent encounter | CPT/HCPCS: 99281 ==